=== PATIENT | female | born 1955 | race Caucasian/White ===

== ENCOUNTER 2017-03-30 08:16 | Outpatient (CLI) | payer OTHER ==
[2017-03-30 10:20] LABS: Mean Platelet Volume 7.6 fL (7.4-10.4); Red Blood Cell (RBC) Count 4.17 mill/uL (4.20-5.40); White Blood Cell (WBC) Count 7.4 thou/uL (4.8-10.8)
[2017-03-30 10:38] LABS: Anion Gap 14 mmol/L (10-20); BUN (Urea Nitrogen) 23 mg/dL (9.8-20.1); Calc. Creatinine Clearance 0 mL/min (70-130); Calcium 9.1 mg/dL (7.8-10.44); Carbon Dioxide 25 mmol/L (23-31); Chloride 106 mmol/L (98-107); Estimated GFR-MDRD 75
--- NOTE | 2017-03-31 16:04 | EKG ---
Test Reason : PREOP Blood Pressure : / mmHG Vent. Rate : 052 BPM Atrial Rate : 052 BPM P-R Int : 164 ms QRS Dur : 092 ms QT Int : 454 ms P-R-T Axes : 079 061 069 degrees QTc Int : 422 ms Sinus bradycardia with Premature atrial complexes Minimal voltage criteria for LVH, may be normal variant Borderline ECG When compared with ECG of 03-DEC-2015 23:34, (Unconfirmed) Premature ventricular complexes are no longer Present Premature atrial complexes are now Present Confirmed by DR. Anthony RAMIREZ ([id number]) on 03/31/2017 4:04:19 PM Referred By: INDRA Confirmed By:DR. Anthony RAMIREZ
== END 2017-03-30 08:17 | disposition home or self-care (01) ==
LOC: LABBT 08:16
PROVIDERS: ATTEND Orthopaedic Surgery
DX: Z01.818 Encounter for other preprocedural examination (principal); M65.331 Trigger finger, right middle finger
CPT/HCPCS: 80048; 85027; 93005; 93010

== ENCOUNTER 2017-05-11 13:17 | Outpatient (CLI) | payer OTHER ==
--- NOTE | 2017-05-11 15:00 | MRI ---
MRI OF THE LUMBAR SPINE WITHOUT CONTRAST: COMPARISON: None. HISTORY: Low back pain with right-sided radiculopathy for 3 years. TECHNIQUE: Multiplanar, multisequence MR images were obtained of the lumbar spine without contrast. FINDINGS: Disk desiccation of L4-5 and L5-S1 intervertebral disks is seen. The conus medullaris terminates nor alicia at L1. There are foci of high T2 signal in the bilateral kidneys which represents cysts. The other prevertebral and paraspinal soft tissues are unremarkable. The vertebral bodies demonstrate no rmal height and alignment without fracture or subluxation. T12-L1: Unremarkable. L1-2: Unremarkable. L2-3: Unremarkable. L3-4: No significant bulge or protrusion. Mild bilateral posterior facet arthrosis. Mild central c anal stenosis. No neural foraminal stenosis. L4-5: A small disk-osteophyte complex is seen. Mild bilateral posterior facet arthrosis. Moderate central canal stenosis. Moderate bilateral neural foraminal stenosis. L5-S1: A small disk-osteophyte complex is associated with a superimposed right paracentral protrusio n. Mild bilateral posterior facet arthrosis. Mild central canal stenosis. Mild bilateral neural fo raminal stenosis. IMPRESSION: Degenerative changes of the lumbar spine as above. POS: [facility]
== END 2017-05-11 13:18 | disposition home or self-care (01) ==
LOC: MRI 13:17
PROVIDERS: ATTEND Surgery
DX: M54.5 Low back pain (principal); M47.816 Spondylosis without myelopathy or radiculopathy, lumbar region
CPT/HCPCS: 72148

== ENCOUNTER 2017-08-29 13:06 | Outpatient (CLI) | payer OTHER | END 2017-08-29 13:07 | disposition home or self-care (01) | LOC: BICULT 13:06 | PROVIDERS: ATTEND Urology | DX: N20.0 Calculus of kidney (principal); N28.1 Cyst of kidney, acquired | CPT/HCPCS: 74018; 76770 ==

== ENCOUNTER 2017-11-22 09:12 | Outpatient (CLI) | payer OTHER | END 2017-11-22 09:13 | disposition home or self-care (01) | LOC: BICMAMMO 09:12 | PROVIDERS: ATTEND Family Medicine | DX: Z12.31 Encounter for screening mammogram for malignant neoplasm of breast (principal); Z80.3 Family history of malignant neoplasm of breast | CPT/HCPCS: 77063; 77067 ==

== ENCOUNTER 2018-02-05 08:50 | Outpatient (CLI) | payer OTHER ==
[2018-02-05 10:28] LABS: Hemoglobin 12.9 g/dL (12.0-16.0); Mean Corpuscular HGB CONC 32.1 g/dL (32.0-36.0); Mean Corpuscular Hemoglobin 30.1 pg (27.0-31.0); Mean Corpuscular Volume 93.6 fL (78.0-98.0); Mean Platelet Volume 7.4 fL (7.4-10.4); Platelet Count 364 thou/uL (130-400); White Blood Cell (WBC) Count 6.5 thou/uL (4.8-10.8)
[2018-02-05 10:49] LABS: INR-International Normal Ratio 0.9; PTT 30.8 SEC (22.9-36.1)
[2018-02-05 10:52] LABS: Anion Gap 11 mmol/L (10-20); BUN (Urea Nitrogen) 21 mg/dL (9.8-20.1); Calc. Creatinine Clearance 0 mL/min (70-130); Calcium 9.4 mg/dL (7.8-10.44); Carbon Dioxide 26 mmol/L (23-31); Chloride 107 mmol/L (98-107); Estimated GFR-MDRD 80; Glucose 92 mg/dL (80-115); Potassium 3.8 mmol/L (3.5-5.1); Sodium 140 mmol/L (136-145)
--- NOTE | 2018-02-06 17:42 | EKG ---
Test Reason : Blood Pressure : / mmHG Vent. Rate : 045 BPM Atrial Rate : 045 BPM P-R Int : 170 ms QRS Dur : 090 ms QT Int : 474 ms P-R-T Axes : 079 065 066 degrees QTc Int : 410 ms Marked sinus bradycardia Possible Left atrial enlargement Left ventricular hypertrophy Abnormal ECG When compared with ECG of 30-MAR-2017 08:46, Premature atrial complexes are no longer Present Confirmed by DR. Anthony RAMIREZ ([id number]) on 02/06/2018 5:41:46 PM Referred By: RIZWAN Confirmed By:DR. Anthony RAMIREZ
== END 2018-02-05 08:51 | disposition home or self-care (01) ==
LOC: LABBT 08:50
PROVIDERS: ATTEND Surgery
DX: Z01.818 Encounter for other preprocedural examination (principal); M48.02 Spinal stenosis, cervical region; M54.12 Radiculopathy, cervical region
CPT/HCPCS: 80048; 85027; 85610; 85730; 93005; 93010

== ENCOUNTER 2018-02-15 05:59 | Day surgery (SDC) | payer OTHER ==
[2018-02-05 09:18] VITALS: BMI 21.9
[2018-02-15] MEDS ORDERED: CEFAZOLIN/Water 2 GM/20 ML SYRINGE ONE (06:23)
[2018-02-15] MEDS ORDERED: Sodium Chloride 0.9% 10 ML ONE (06:26)
[2018-02-15] MEDS ORDERED: Thrombin 5000 UNITS/5 ML VIAL ONE (06:26)
[2018-02-15] MEDS ORDERED: Midazolam HCl 2 mg/2 ml Vial ONE (07:05)
[2018-02-15] MEDS ORDERED: Fentanyl 100 MCG/2 ML VIAL ONE ×5 (07:06→10:34)
[2018-02-15] MEDS ORDERED: Acetaminophen 325 MG TAB PO PRN (09:35)
[2018-02-15] MEDS ORDERED: Bisacodyl 10 MG SUPP PR PRN (09:35)
[2018-02-15] MEDS ORDERED: Mag-Al 1200 mg/1200 mg/30 ML UDCUP PO PRN (09:35)
[2018-02-15] MEDS ORDERED: Milk Of Magnesia 30 ML UDCUP PO PRN (09:35)
[2018-02-15] MEDS ORDERED: Promethazine HCl 25 MG/ML VIAL IM PRN ×2 (09:35→09:43)
[2018-02-15] MEDS ORDERED: Acetaminophen/Codeine 30-300mg Tablet PO PRN (09:35)
[2018-02-15] MEDS ORDERED: Fleet Enema 133 ML BOT PR PRN (09:35)
[2018-02-15] MEDS ORDERED: Meperidine HCl/PF 25 MG/ML VIAL SLOW IVP PRN (09:43)
[2018-02-15] MEDS ORDERED: HYDROmorphone 2 MG/ML VIAL SLOW IVP PRN (09:43)
[2018-02-15] MEDS ORDERED: Ondansetron HCl/PF 4 MG/2 ML Vial IVP PRN (09:43)
[2018-02-15] MEDS ORDERED: Promethazine HCl 25 MG/ML VIAL SLOW IVP PRN (09:43)
[2018-02-15] MEDS ORDERED: Glycopyrrolate 0.2 MG/ML 5 ML SYRINGE ONE (10:36)
[2018-02-15] MEDS ORDERED: Ondansetron HCl/PF 4 MG/2 ML Vial ONE (10:36)
[2018-02-15] MEDS ORDERED: Metoclopramide HCl 10 MG/2 ML VIAL ONE (10:36)
[2018-02-15] MEDS ORDERED: Lidocaine 1% PF 5 ML VIAL ONE (10:36)
[2018-02-15] MEDS ORDERED: Dexamethasone 20 MG/5 ML VIAL ONE (10:36)
[2018-02-15] MEDS ORDERED: PROPOFOL 200 MG/20 ML VIAL ONE (10:36)
--- NOTE | 2018-02-15 10:45 | OP ---
DATE OF PROCEDURE: 02/15/2018 OR: OR #11. WOUND TYPE: Type 1 wound. SURGEON: James Maldonado M.D. MANAGER MALL: Rosendo Lu PA-C. PREPROCEDURE DIAGNOSES: C5-C6 stenosis with radiculopathy. POST-PROCEDURE DIAGNOSES: C5-C6 stenosis with radiculopathy. PROCEDURE: 1. Anterior C5-C6 diskectomy for decompression of spinal cord nerve roots. 2. Preparation of endplates with placement of interbody spacer packed with local bone autograft obta ined from same incision, allograft, C5-C6 for arthrodesis. 3. Anterior cervical plate and screw fixation, C5-C6. 4. Use of operative microscope for microdissection. PROCEDURE: After informed consent was obtained, the patient, the patient brought to OR 11. Proper p atient pause and identification was carried out. She was placed under excellent endotracheal anesthe gagan and positioned supine on the OR table. All appropriate points were padded. A small right anteri or oblique dai was drawn out. This region was sterilely cleansed, prepared, and draped. Proper pat ient pause and identification was carried out. The wound was then opened with a combination of sharp , monopolar and blunt dissection proceeded lateral to the esophagus and trachea and medial to the rig ht carotid sheath. We identified the prevertebral layer of deep cervical fascia. Localization film confirmed our area of interest. We then performed distraction at C5-C6 and diskectomy was performed with use of microscope for microdissection, resulting in decompression of neural elements. We then p repared the endplates and an interbody spacer packed with graft was placed for arthrodesis and the mi croscope removed. Anterior cervical plate and screw fixation occurred at C5-C6. Copious irrigation occurred throughout as did maximizing hemostasis. The wound was then closed in anatomic layers over a drain. The patient then emerged from anesthesia.
[2018-02-15] MEDS: HYDROcodone/Acetaminophen 7.5/325 mg Tablet PO PRN ×2 (12:36→19:52)
[2018-02-15] MEDS: Sodium Chloride 0.9% 1,000 ML IV SCH (13:29)
[2018-02-15] MEDS: tiZANidine HCl 4 MG TAB PO PRN ×2 (13:43→19:06)
[2018-02-15] MEDS: CEFAZOLIN/Water 2 GM/20 ML SYRINGE SLOW IVP SCH ×2 (17:25→22:44)
[2018-02-15] MEDS: Docusate 100 MG CAP PO SCH (20:02)
[2018-02-15] MEDS: traMADol HCl 50 MG TAB PO PRN (22:43)
[2018-02-16] MEDS: HYDROcodone/Acetaminophen 7.5/325 mg Tablet PO PRN ×3 (00:25→11:00)
[2018-02-16] MEDS: tiZANidine HCl 4 MG TAB PO PRN ×2 (01:01→08:24)
[2018-02-16] MEDS: Sodium Chloride 0.9% 1,000 ML IV SCH (01:03)
[2018-02-16] MEDS: Meperidine HCl/PF 25 MG/ML VIAL SLOW IVP PRN ×2 (02:38→06:44)
[2018-02-16] MEDS: CEFAZOLIN/Water 2 GM/20 ML SYRINGE SLOW IVP SCH (06:47)
[2018-02-16 07:56] VITALS: BP 147/70; TEMP 97.4
[2018-02-16] MEDS: traMADol HCl 50 MG TAB PO PRN (08:24)
[2018-02-16] MEDS: Docusate 100 MG CAP PO SCH (08:24)
[2018-02-16] MEDS ORDERED: Multivit, Therapeutic 1 TAB PO SCH (09:00)
--- NOTE | 2018-02-16 09:53 | PRG ---
DATE OF SERVICE: 02/16/2018 SUBJECTIVE: Ms. Perez is doing well postoperative day 1 from C5-C6 ACDF. She has had bifrontal he adache. I should note, there was no evidence of CSF leak intraoperatively. I suspect this is medica tion related. She has also had as expected neck pain, but her upper extremities have improved in reg ena to her radiculopathy. Her drain output has been minimal. She is doing well neurologically. We went over both intra and postoperative issues and she will be dismissed and we will remove the drain.
== END 2018-02-16 11:05 | disposition home or self-care (01) ==
LOC: SDC 05:59 → SURG A 12:01 → SDC 02-16 11:05
PROVIDERS: ATTEND Surgery
PROC: 0RG10A0 Fusion of Cervical Vertebral Joint with Interbody Fusion Device, Anterior Approach, Anterior Column, Open Approach (ICD-10-PCS; principal; 2018-02-15)
PROC: 0RT30ZZ Resection of Cervical Vertebral Disc, Open Approach (ICD-10-PCS; principal; 2018-02-15)
DX: M48.02 Spinal stenosis, cervical region (principal); M54.12 Radiculopathy, cervical region; F17.210 Nicotine dependence, cigarettes, uncomplicated; Z79.82 Long term (current) use of aspirin; Z79.899 Other long term (current) drug therapy; Z88.5 Allergy status to narcotic agent
CPT/HCPCS: 76001; 96372; 96374; 96375; 96376; A4216; C1713; C1776; J0131; J2175; J2250; J2550; J3010; J3490

== ENCOUNTER 2018-04-11 09:04 | Outpatient (CLI) | payer OTHER ==
--- NOTE | 2018-04-11 10:19 | RAD ---
THREE VIEWS OF THE CERVICAL SPINE: DATE: 04/11/2018. COMPARISON: 02/13/2017. HISTORY: Evaluate cervical spine following surgery, pain. FINDINGS: Anterior diskectomy and fusion hardware is now present at C5-6. No significant anterolisthesis or re trolisthesis is noted. There is mild anterior wedging and superior end plate irregularity at C7 suggesting remote fracture, stable when compared to the 2017 examination. No prevertebral soft tissue swelling. No evidence for hardware failure. Open mouth odontoid view de monstrates a normal-appearing C1-2 articulation. IMPRESSION: Postoperative changes within the cervical spine as detailed above. POS: [facility]
== END 2018-04-11 09:05 | disposition home or self-care (01) ==
LOC: TBSIIMAG 09:04
PROVIDERS: ATTEND Surgery
DX: M54.12 Radiculopathy, cervical region (principal); M48.02 Spinal stenosis, cervical region; M54.2 Cervicalgia; Z98.890 Other specified postprocedural states
CPT/HCPCS: 72040

== ENCOUNTER 2018-05-18 07:45 | Outpatient (CLI) | payer OTHER ==
--- NOTE | 2018-05-18 09:16 | RAD ---
RADIOGRAPH LUMBAR SPINE 4 VIEWS: 05/18/2018 HISTORY: A 63-year-old female with M54.5, chronic low back pain. COMPARISON: No prior plain radiograph of the lumbar spine. TECHNIQUE: All upright views. AP view. Three lateral views, in flexion, extension, and neutral. FINDINGS: There is a transitional level at the thoracolumbar junction. For the purposes of this report, the ve rtebra with a unilateral left small accessory rib will be designated as L1 rather than T12. Followin g this, the lowest lumbar vertebra will be designated as L5. There is no scoliosis. Vertebral body heights are maintained. Mild degenerative retrolisthesis of L 4 on L5, and also of L5 on S1. Mild to moderate disk space narrowing at L4-L5. Moderate to severe d isk space narrowing at L5-S1. Small endplate marginal osteophytes. Degenerative facet changes at L5 -S1, right greater than left. No instability is demonstrated between flexion and extension. IMPRESSION: 1. Lumbar spondylosis, consisting of facet osteoarthrosis at L5-S1, and degenerative disk changes at L5-S1 and at L4-L5. 2. The other levels appear relatively normal. 3. No instability. 4. Transitional level at the thoracolumbar junction. SAMMIE [] POS: [facility]
--- NOTE | 2018-05-18 09:40 | MRI ---
MRI LUMBAR SPINE WITHOUT CONTRAST: HISTORY: M54.5, low back pain. COMPARISON: MRI from 2017. FINDINGS: The aortic size is nonaneurysmal. There are multiple T2 hyperintense foci of both kidneys, similar. No hydronephrosis. No retroperitoneal adenopathy. No marrow infiltrative process. No acute fracture or malalignment. Modic type I endplate changes of L5-S1. The conus medullaris terminates near the inferior endplate of L1. Levels are as follows: L1-L2: There is a low grade right lateral recess in the subforaminal zone. Posterior disk osteophyt e complex. Mild right-sided neural foraminal narrowing. No significant left-sided neural foraminal narrowing. Spinal canal is not narrowed. L2-L3: Low-grade bilateral subforaminal posterior disk osteophyte complexes. Mild bilateral neural foraminal narrowing. No significant spinal canal narrowing. L3-L4: Mild disk desiccation. Mild facet arthropathy. Low-grade bilateral subforaminal posterior d isk osteophyte complexes. Mild bilateral neural foraminal narrowing. L4-L5: There is a broad-based posterior disk osteophyte complex. Moderate bilateral neural foramina l narrowing. Moderate facet arthropathy. Mild ligamentum flavum hypertrophy. The spinal canal jane ures 6 mm. L5-S1: There is a central, right paracentral, and subforaminal posterior disk osteophyte complex cau sing moderate right-sided neural foraminal narrowing. Moderate facet arthropathy. Mild left-sided n eural foraminal narrowing. IMPRESSION: Multilevel mild to moderate spondylosis, similar to 2017 examination. No new acute abnormality. POS: [facility]
== END 2018-05-18 07:46 | disposition home or self-care (01) ==
LOC: TBSIIMAG 07:45
PROVIDERS: ATTEND Surgery
DX: M54.5 Low back pain (principal); M51.36 Other intervertebral disc degeneration, lumbar region; M51.37 Other intervertebral disc degeneration, lumbosacral region; M47.816 Spondylosis without myelopathy or radiculopathy, lumbar region
CPT/HCPCS: 72110; 72148

== ENCOUNTER 2018-09-12 19:37 | Emergency (ER) | payer OTHER ==
[2018-09-12] MEDS ORDERED: Metoclopramide HCl 10 MG/2 ML VIAL ONE (19:59)
[2018-09-12 20:04] LABS: #Lymphocytes 1.6 thou/uL (1.20-3.40); #Monocytes 0.5 thou/uL (0.11-0.59); #Neutrophils 4.7 thou/uL (1.40-6.50); %Basophils 0.6 % (0.0-1.0); %Eosinophils 0.5 % (0.0-10.0); %Monocytes 6.9 % (0.0-10.0); Hemoglobin 14.9 g/dL (12.0-16.0); Mean Corpuscular HGB CONC 32.3 g/dL (32.0-36.0); Mean Corpuscular Hemoglobin 29.2 pg (27.0-31.0); Mean Corpuscular Volume 90.3 fL (78.0-98.0); Mean Platelet Volume 8.4 fL (7.4-10.4); Platelet Count 311 thou/uL (130-400); RBC Distribution Width 12.5 % (11.5-14.5); White Blood Cell (WBC) Count 6.8 thou/uL (4.8-10.8)
[2018-09-12] MEDS ORDERED: Lorazepam 2 MG/ML VIAL ONE (20:09)
[2018-09-12] MEDS ORDERED: Promethazine HCl 25 MG/ML VIAL ONE (20:10)
[2018-09-12] MEDS ORDERED: Fentanyl 100 MCG/2 ML VIAL ONE (20:23)
[2018-09-12 20:32] LABS: ALT (SGPT) 17 U/L (8-55); AST (SGOT) 30 U/L (5-34); Albumin 4.5 g/dL (3.4-4.8); Alkaline Phosphatase 107 U/L (40-150); Anion Gap 23 mmol/L (10-20); BUN (Urea Nitrogen) 38 mg/dL (9.8-20.1); Bilirubin, Total 0.3 mg/dL (0.2-1.2); CK (CPK) 65 U/L (29-168); Calc. Creatinine Clearance 0 mL/min (70-130); Calcium 9.8 mg/dL (7.8-10.44); Carbon Dioxide 16 mmol/L (23-31); Chloride 102 mmol/L (98-107); Estimated GFR-MDRD 45; Globulin 3.5 g/dL (2.4-3.5); Glucose 126 mg/dL (80-115); Lipase 12 U/L (8-78); Potassium 4.1 mmol/L (3.5-5.1); Sodium 137 mmol/L (136-145)
--- NOTE | 2018-09-12 21:00 | CT ---
EXAM: Brain CT scan Without contrast: HISTORY: Headache COMPARISON: None FINDINGS: Atrophy and chronic white matter ischemic change. No focal mass or midline shift. No intra or extra-axial hemorrhage. IMPRESSION: No mass or bleed or other significant acute intracranial process. 1
== END 2018-09-12 22:01 | disposition home or self-care (01) ==
LOC: ERS 19:37
DX: E86.0 Dehydration (principal); G43.909 Migraine, unspecified, not intractable, without status migrainosus; R11.2 Nausea with vomiting, unspecified; R19.7 Diarrhea, unspecified; Z79.899 Other long term (current) drug therapy
CPT/HCPCS: 70450; 80053; 82550; 83690; 85025; 93005; 96365; 96375; J2060; J2550; J2765; J3010

== ENCOUNTER 2018-12-21 12:21 | Inpatient (IN) | payer OTHER ==
[2018-12-21] MEDS ORDERED: Metoclopramide HCl 10 MG/2 ML VIAL ONE (12:51)
[2018-12-21] MEDS ORDERED: Pantoprazole 40 MG VIAL ONE (12:52)
[2018-12-21 13:13] LABS: Mean Corpuscular HGB CONC 33.1 g/dL (32.0-36.0); Mean Corpuscular Hemoglobin 29.8 pg (27.0-31.0); Mean Corpuscular Volume 89.9 fL (78.0-98.0); Mean Platelet Volume 8.1 fL (7.4-10.4); Platelet Count 369 thou/uL (130-400); Red Blood Cell (RBC) Count 5.39 mill/uL (4.20-5.40); White Blood Cell (WBC) Count 23.6 thou/uL (4.8-10.8)
[2018-12-21 13:30] LABS: Band 12 % (5-11); Lymphocytes 6 % (21-51); MDiff Complete? YES; Monocytes 4 % (0-10); Neutrophil 78 % (42-75); Platelet Morphology Comment Appears Adequate; RBC Morphology Normal
[2018-12-21 13:38] LABS: ALT (SGPT) 78 U/L (8-55); AST (SGOT) 93 U/L (5-34); Albumin 4.7 g/dL (3.4-4.8); Alkaline Phosphatase 190 U/L (40-150); Anion Gap 24 mmol/L (10-20); BUN (Urea Nitrogen) 40 mg/dL (9.8-20.1); Bilirubin, Total 1.3 mg/dL (0.2-1.2); Calc. Creatinine Clearance 0 mL/min (70-130); Calcium 10.6 mg/dL (7.8-10.44); Carbon Dioxide 16 mmol/L (23-31); Chloride 97 mmol/L (98-107); Estimated GFR-MDRD 23; Globulin 3.9 g/dL (2.4-3.5); Glucose 231 mg/dL (80-115); Lipase 9 U/L (8-78); Potassium 3.8 mmol/L (3.5-5.1); Protein, Total 8.6 g/dL (6.0-8.3); Sodium 133 mmol/L (136-145)
--- NOTE | 2018-12-21 15:23 | CT ---
CT ABDOMEN AND PELVIS WITHOUT IV CONTRAST: Date: 12/21/18 INDICATION: Abdominal pain. Constipation. Now with vomiting and diarrhea since last night. Comparison made to CT abdomen and pelvis dated 01/22/17. FINDINGS: Lung bases are clear. Liver, spleen, and pancreas are unremarkable. Hepatic hemangiomas have been previously described on c ontrast enhanced CT scan. These are not well seen on this unenhanced study. Post cholecystectomy [facility]. Bilateral renal cystic lesions appear stable. There are bilateral renal calcifications which were pre sent previously. Calcifications in the lower pole of the right kidney and there are numerous calcific ations throughout the upper collecting structures of the left kidney. These appear stable. There is n o ureteral calculus or obstruction. No hydronephrosis. Urinary bladder contracted. Small bowel loops show mild distention. The colon is abnormal. Large amount of stool is seen throughout the colon. There is mural thickening of the transverse colon and left colon with surrounding inflammatory change. There is scattered diver ticula. There is free fluid surrounding the sigmoid colon and the pelvis. There is luminal narrowing at the rectosigmoid junction of uncertain significance. This should be ass essed with endoscopy to rule out a mucosal lesion. IMPRESSION: Large amount of stool in the colon with mural thickening and inflammatory changes surrounding the tra nsverse and left colon. Free fluid surrounds the sigmoid colon and the pelvis. Luminal narrowing at t he rectosigmoid junction of uncertain significance. The findings indicate diffuse colitis. Recommend GI consultation. POS: [facility]
[2018-12-21] MEDS ORDERED: MEROPENEM 1 GM/50 ML 1 GM in Premix Bag 1 BAG IVPB SCH (16:00)
[2018-12-21] MEDS ORDERED: Promethazine HCl 25 MG/ML VIAL ONE (16:54)
[2018-12-21] MEDS ORDERED: Acetaminophen 650 MG Suppository PR PRN (19:15)
[2018-12-21] MEDS ORDERED: Ondansetron ODT 4 MG TAB PO PRN (19:15)
[2018-12-21] MEDS ORDERED: Ondansetron PF 4 MG/2 ML Vial IVP PRN (19:15)
[2018-12-21] MEDS ORDERED: Sodium Chloride 0.9% 1,000 ML IV SCH ×2 (19:15→22:51)
[2018-12-21] MEDS ORDERED: Acetaminophen 325 MG TAB PO PRN (19:15)
[2018-12-21 19:54] VITALS: BMI 21.9
[2018-12-21 20:59] LABS: Lactic Acid 3.5 mmol/L (0.5-2.2)
[2018-12-21 21:03] LABS: Bilirubin, Direct 0.4 mg/dL (0.1-0.3); Magnesium 2.3 mg/dL (1.6-2.6)
[2018-12-21] MEDS: Famotidine/PF 20 mg/2ml Vial SLOW IVP SCH (21:11)
[2018-12-21] MEDS: Meropenem 500 MG in Sodium Chloride 0.9% 100 ML IVPB SCH (21:11)
[2018-12-21] MEDS: traMADol HCl 50 MG TAB PO PRN (21:25)
[2018-12-21 21:50] LABS: Acetaminophen Less than 6.0 mcg/mL (10.0-30.0); Alcohol Less than 10 mg/dL (Less than 10); Salicylate Less than 8.0 mg/dL (15.0-30.0)
[2018-12-21] MEDS ORDERED: Meropenem 1 GM in Sodium Chloride 0.9% 100 ML IVPB SCH (22:00)
--- NOTE | 2018-12-21 23:47 | ULT ---
Sonogram abdomen complete HISTORY: Abdominal pain. Abnormal liver function tests. FINDINGS: Gallbladder is surgically absent. Common duct is upper limits of normal at 1.0 cm where the re is mild fusiform dilatation. The liver contains 3 hemangiomas that have been detailed on prior CT exams. Small cyst of the left kidney. Tiny cyst at the posterior cortex of the right kidney. Tiny shadowing stone the inferior pole of the right kidney. Spleen and visualized portions of the abdominal aorta, IVC, and pancreas have a normal appearance. IMPRESSION: Status post cholecystectomy. No evidence of biliary obstruction. Nonobstructing right renal calculus. Bilateral renal cysts.
[2018-12-22 00:04] LABS: Amphetamine Not Detected (NotDetected); Barbiturates Screen Not Detected (NotDetected); Benzodiazepine Screen Not Detected (NotDetected); Cocaine Metabolite Screen Not Detected (NotDetected); Medtox Control Line Valid? VALID (VALID); Medtox Reader # READER 4; Methadone Not Detected (NotDetected); Methamphetamine Not Detected (NotDetected); Opiate Screen Not Detected (NotDetected); Oxycodone Screen Not Detected (NotDetected); Phencyclidine (PCP) Not Detected (NotDetected); THC/Cannabinoid Screen Detected (NotDetected); Tricyclic Screen Not Detected (NotDetected)
[2018-12-22 00:47] LABS: Anion Gap 16 mmol/L (10-20); BUN (Urea Nitrogen) 43 mg/dL (9.8-20.1); Calc. Creatinine Clearance 46 mL/min (70-130); Calcium 8.8 mg/dL (7.8-10.44); Carbon Dioxide 16 mmol/L (23-31); Chloride 106 mmol/L (98-107); Estimated GFR-MDRD 43; Glucose 148 mg/dL (80-115); Potassium 3.2 mmol/L (3.5-5.1); Sodium 135 mmol/L (136-145)
[2018-12-22] MEDS: 1/2 NS w/KCL 20 mEq 1,000 ML IV SCH ×3 (03:54→20:58)
[2018-12-22] MEDS: Meropenem 500 MG in Sodium Chloride 0.9% 100 ML IVPB SCH (05:40)
[2018-12-22 07:01] LABS: Anion Gap 14 mmol/L (10-20); BUN (Urea Nitrogen) 45 mg/dL (9.8-20.1); Calc. Creatinine Clearance 52 mL/min (70-130); Calcium 8.8 mg/dL (7.8-10.44); Carbon Dioxide 20 mmol/L (23-31); Chloride 104 mmol/L (98-107); Estimated GFR-MDRD 50; Glucose 116 mg/dL (80-115); Magnesium 1.9 mg/dL (1.6-2.6); Potassium 3.6 mmol/L (3.5-5.1); Sodium 134 mmol/L (136-145)
[2018-12-22 07:39] LABS: Hemoglobin 12.8 g/dL (12.0-16.0); Mean Corpuscular HGB CONC 33.3 g/dL (32.0-36.0); Mean Corpuscular Hemoglobin 29.8 pg (27.0-31.0); Mean Corpuscular Volume 89.5 fL (78.0-98.0); Mean Platelet Volume 8.6 fL (7.4-10.4); Platelet Count 277 thou/uL (130-400); RBC Distribution Width 12.8 % (11.5-14.5); White Blood Cell (WBC) Count 18.8 thou/uL (4.8-10.8)
[2018-12-22 07:42] LABS: Band 3 % (5-11); Lymphocytes 4 % (21-51); MDiff Complete? YES; Monocytes 8 % (0-10); Neutrophil 82 % (42-75); Platelet Morphology Comment Appears Adequate; Reactive Lymphocytes 3 % (0-10)
--- NOTE | 2018-12-22 13:45 | PDOC.HOSPP ---
- Subjective Subjective: Pt seen for followup re: clostridium difficile colitis. c/o abdo cramps, diarrhea. - Objective Vital Signs & Weight: Vital Signs (12 hours) Temp Pulse Resp BP Pulse Ox 12/22/18 11:46 98.4 F 72 16 177/94 H 97 12/22/18 08:00 96 12/22/18 07:56 98.5 F 69 18 181/84 H 96 12/22/18 05:43 98 F 78 18 149/83 H 96 Weight Weight 140 lb Result Diagrams: 12/22/18 05:40 12/22/18 05:40 Additional Labs: MARs and labs reviewed by me ROS - Review of Systems All systems: All other ROS were reviewed and found negative. Cardiovascular: denies: chest pain, palpitations, orthopnea, paroxysmal noc. dyspnea, edema, light headedness Gastrointestinal: reports: abdominal pain, diarrhea. denies: nausea, vomitting , constipation, melena, hematochezia - Medication Medications: Active Medications Generic Name Dose Route Start Last Admin Trade Name Freq PRN Reason Stop Dose Admin Famotidine 20 mg 12/21/18 21:00 12/21/18 21:11 Pepcid SLOW IVP 20 mg QPM MAY Administration Potassium Chloride/Sodium Chloride 1,000 mls @ 75 mls/hr 12/22/18 03:00 12/22 03:54 1/2 Ns W/Kcl 20 Meq IV 1,000 mls .[id number] MAY Administration Tramadol HCl 50 mg 12/21/18 21:13 12/21/18 21:25 Ultram PO 50 mg Q8H PRN Administration Moderate Pain (4-6) - Exam NAD ENT: normocephalic atraumatic Neck: supple Heart: RRR Respiratory: CTAB Gastrointestinal: soft, non-tender, normal bowel sounds Psychiatric: normal affect Hosp A/P (1) Clostridium difficile colitis Code(s): A04.72 - ENTEROCOLITIS D/T CLOSTRIDIUM DIFFICILE, NOT SPCF RECUR Status: Acute (2) Elevated blood pressure reading Code(s): R03.0 - ELEVATED BLOOD-PRESSURE READING, W/O DIAGNOSIS OF HTN Status : Acute (3) Abnormal LFTs Code(s): R94.5 - ABNORMAL RESULTS OF LIVER FUNCTION STUDIES Status: Acute (4) Hyponatremia Code(s): E87.1 - HYPO-OSMOLALITY AND HYPONATREMIA Status: Acute (5) TEN (acute kidney injury) Code(s): N17.9 - ACUTE KIDNEY FAILURE, UNSPECIFIED Status: Resolved - Plan continue antibiotics, out of bed/ambulate, DVT proph w/SCDs continue metronidazole and enteral vancomycin. Add PRN IV hydralazine for elevated blood pressure. Recheck LFTs Mild hyponatremia, likely asymptomatic.
[2018-12-22] MEDS: traMADol HCl 50 MG TAB PO PRN (14:35)
[2018-12-22] MEDS: metroNIDAZOLE 500 MG in Premix Bag 1 BAG IVPB SCH ×2 (14:39→20:57)
[2018-12-22] MEDS: Vancomycin HCl 25 MG/ML Oral PO SCH (18:47)
--- NOTE | 2018-12-22 19:07 | CON ---
DATE OF CONSULTATION: REASON FOR CONSULTATION: "Diverticulitis." HISTORY OF PRESENT ILLNESS: Ms. Perez is a 63-year-old female, known to me from prior evaluations for nausea, vomiting, chronic constipation related to her narcotic pain medicines, who had normal upper and lower endoscopies 5 years ago, except for some diverticular disease. She came into the emergency room with complaints of abdominal pain, diarrhea, and vomiting for several days duration. She reports that about 2 weeks ago, she was in the hospital in [facility] in [place], [place] and was told that she may have diverticulitis, was given one dose of antibiotics in the emergency room and then sent home with no antibiotics, told to follow up with regular physician. She was here with nausea, vomiting. She states that happens periodically and she relates that to her pain medicines. However, her diarrhea became much worse in the past 3 to 4 days. At first, she thought she could not have a bowel movement, then took laxatives and was having bowel movements where everything just would come out every 10 to 15 minutes. She was having vomiting as well. She denies any fever. Her pain however in left lower quadrant was quite severe. In the emergency room, she had a CAT scan of the abdomen and pelvis, showed a large amount of stool in the colon, mural thickening, inflammatory changes around the transverse and left colon, free fluid in the sigmoid colon and pelvis, some luminal narrowing at the rectosigmoid junction. Stool last night came back positive for C difficile toxin and antigen. She denies any recent antibiotics other than the treatment in the emergency room in [place] a few weeks ago. She has had no other new changes in medications. Presently, she feels a little bit better. PAST MEDICAL HISTORY: Chronic pain syndrome, for which she takes multiple pain medications. She has skin cancers in the past. She had EGD and colonoscopy 5 years ago as noted above. PAST SURGICAL HISTORY: Includes right knee, cholecystectomy, and neck surgeries in the past. MEDICATIONS: Home medications; 1. Protonix. 2. Naprosyn. 3. [place]. 4. Tramadol. 5. Omeprazole. 6. Nat. 7. Excedrin. Present medications here; 1. Tylenol. 2. Pepcid. 3. . 4. She was on meropenem, which was stopped and placed on metronidazole IV and oral vancomycin when her C diff came back. 5. She is on half-normal saline at 75 an hour. 6. P.r.n. Zofran. 7. P.o. vancomycin 250 q.i.d. ALLERGIES: MORPHINE. SOCIAL HISTORY: She does not drink, smoke, or use drugs. REVIEW OF SYSTEMS: Negative for rashes, myalgias, or arthralgias. Negative for fever or chills, dysuria, frequency, or urgency. Negative for recent antibiotics. PHYSICAL EXAMINATION: VITAL SIGNS: Temperature is 98.4, she has been afebrile since admission. Pulse 72, blood pressure 137/94. GENERAL: She is resting in bed, she is sitting up. She is in no distress. HEENT: Oropharynx is slightly dry. NECK: Supple. No adenopathy. LUNGS: Clear. HEART: Regular without clicks or murmurs. ABDOMEN: Soft. There are decreased bowel sounds. There is tenderness in left lower quadrant. There is no rebound. There is no guarding. IMAGING STUDIES: CAT scan films were reviewed, I agree with report as per that notated in the chart. LABORATORY DATA: White blood cell count 23,000 last night, 18,000 tonight. Platelets 277, 80% segs, 12% bands hemoglobin came down from 16 to 12 with hydration. BUN and creatinine are 45 and 1.10. On the 26th at 1300 hours, they were 40 and 2.17. Sodium 134, potassium 3.6. ASSESSMENT: Severe Clostridium difficile colitis with leukocytosis and inflammatory changes with pericolonic fluid on the CAT scan. RECOMMENDATIONS: IV Flagyl, p.o. vancomycin, saccharomyces boulardii, IV fluids. Liquid diet, advance as tolerated. Job ID: [id number]
[2018-12-22] MEDS: Famotidine/PF 20 mg/2ml Vial SLOW IVP SCH (20:58)
[2018-12-23] MEDS: metroNIDAZOLE 500 MG in Premix Bag 1 BAG IVPB SCH ×3 (04:59→21:03)
[2018-12-23] MEDS: Vancomycin HCl 25 MG/ML Oral PO SCH ×5 (05:00→23:28)
[2018-12-23] MEDS: traMADol HCl 50 MG TAB PO PRN ×2 (05:01→13:44)
[2018-12-23] MEDS: Saccharomyces boulardii 250 MG CAP PO SCH (08:08)
[2018-12-23 08:36] LABS: #Eosinphils 0.1 thou/uL (0.0-0.7); #Lymphocytes 1.9 thou/uL (1.20-3.40); #Monocytes 1.1 thou/uL (0.11-0.59); #Neutrophils 8.2 thou/uL (1.40-6.50); %Basophils 0.4 % (0.0-1.0); %Eosinophils 0.8 % (0.0-10.0); %Lymphocytes 16.4 % (21.0-51.0); %Monocytes 9.3 % (0.0-10.0); Hemoglobin 11.6 g/dL (12.0-16.0); Mean Corpuscular HGB CONC 31.7 g/dL (32.0-36.0); Mean Corpuscular Hemoglobin 28.5 pg (27.0-31.0); Mean Corpuscular Volume 89.8 fL (78.0-98.0); Mean Platelet Volume 8.9 fL (7.4-10.4); Platelet Count 240 thou/uL (130-400); RBC Distribution Width 12.4 % (11.5-14.5); Red Blood Cell (RBC) Count 4.06 mill/uL (4.20-5.40); White Blood Cell (WBC) Count 11.3 thou/uL (4.8-10.8)
[2018-12-23 08:47] LABS: ALT (SGPT) 26 U/L (8-55); AST (SGOT) 20 U/L (5-34); Albumin 3.2 g/dL (3.4-4.8); Alkaline Phosphatase 94 U/L (40-150); Anion Gap 11 mmol/L (10-20); BUN (Urea Nitrogen) 23 mg/dL (9.8-20.1); Bilirubin, Total 0.6 mg/dL (0.2-1.2); Calc. Creatinine Clearance 80 mL/min (70-130); Calcium 8.6 mg/dL (7.8-10.44); Carbon Dioxide 24 mmol/L (23-31); Chloride 104 mmol/L (98-107); Estimated GFR-MDRD 82; Globulin 2.7 g/dL (2.4-3.5); Glucose 86 mg/dL (80-115); Potassium 3.7 mmol/L (3.5-5.1); Protein, Total 5.9 g/dL (6.0-8.3); Sodium 135 mmol/L (136-145)
--- NOTE | 2018-12-23 11:59 | PDOC.HOSPP ---
- Objective Vital Signs & Weight: Vital Signs (12 hours) Temp Pulse Resp BP Pulse Ox 12/23/18 08:11 97.9 F 77 18 123/73 97 12/23/18 08:08 97 12/23/18 00:00 98.8 F 58 L 16 176/84 H 97 Weight Weight 140 lb I&O: 12/22/18 12/23/18 12/24/18 06:59 06:59 06:59 Intake Total 480 Balance 480 Result Diagrams: 12/23/18 07:20 12/23/18 07:20 Additional Labs: Pt seen for followup re:c. difficile colitis. Reports no more diarrhea. c/o dysuria and increased frequency of urination. No fevers or chills.labs and MARs reviewed by me. ROS - Review of Systems All systems: All other ROS were reviewed and found negative. Respiratory: denies: cough, dry, shortness of breath, hemoptysis, SOB with excertion, pleuritic pain, sputum, wheezing Cardiovascular: denies: chest pain, palpitations, orthopnea, paroxysmal noc. dyspnea, edema, light headedness Gastrointestinal: denies: nausea, vomitting, abdominal pain, diarrhea, constipation, melena, hematochezia Genitourinary: reports: dysuria, frequency - Medication Medications: Active Medications Generic Name Dose Route Start Last Admin Trade Name Freq PRN Reason Stop Dose Admin Acetaminophen 650 mg 12/21/18 19:15 12/23/18 05:04 Tylenol PO 650 mg Q4H PRN Administration Headache/Fever/Mild Pain (1-3) Famotidine 20 mg 12/21/18 21:00 12/22/18 20:58 Pepcid SLOW IVP 20 mg QPM MAY Administration Potassium Chloride/Sodium Chloride 1,000 mls @ 75 mls/hr 12/22/18 03:00 12/22 20:58 1/2 Ns W/Kcl 20 Meq IV 1,000 mls .[id number] MAY Administration Metronidazole 500 mg/ Device 100 mls @ 100 mls/hr 12/22/18 14:00 12/23/18 04: 59 IVPB 100 mls Q8HR MAY Administration Saccharomyces Boulardii 250 mg 12/23/18 09:00 12/23/18 08:08 Florastor PO 250 mg DAILY MAY Administration Tramadol HCl 50 mg 12/21/18 21:13 12/23/18 05:01 Ultram PO 50 mg Q8H PRN Administration Moderate Pain (4-6) Vancomycin HCl 250 mg 12/22/18 18:00 12/23/18 11:21 First Vancomycin PO 250 mg Q6HR MAY Administration - Exam NAD Eye: anicteric sclera ENT: no oropharyngeal lesions, moist mucosa Neck: supple Heart: RRR Respiratory: CTAB Gastrointestinal: soft Psychiatric: normal affect Hosp A/P (1) Clostridium difficile colitis Code(s): A04.72 - ENTEROCOLITIS D/T CLOSTRIDIUM DIFFICILE, NOT SPCF RECUR Status: Acute (2) Hyponatremia Code(s): E87.1 - HYPO-OSMOLALITY AND HYPONATREMIA Status: Acute (3) TEN (acute kidney injury) Code(s): N17.9 - ACUTE KIDNEY FAILURE, UNSPECIFIED Status: Resolved (4) Elevated blood pressure reading Code(s): R03.0 - ELEVATED BLOOD-PRESSURE READING, W/O DIAGNOSIS OF HTN Status : Resolved (5) Abnormal LFTs Code(s): R94.5 - ABNORMAL RESULTS OF LIVER FUNCTION STUDIES Status: Resolved - Plan continue antibiotics, out of bed/ambulate, DVT proph w/SCDs Sodium improved to 134. Check urine for evidence of infection. Continue IV Flagyl and enteral vancomycin. Leucocytosis improved.
[2018-12-23 12:07] LABS: Bacteria/HPF None Seen HPF (None Seen); Bilirubin Negative (Negative); Blood, Urine 1+ (Negative); Clarity Clear (Clear); Glucose, Urine (Dipstick) Normal (Negative); Leukocyte 250 Leu/uL (Negative); Nitrite Negative (Negative); Protein, Urine (Dipstick) Negative (Neg-Trace); Squamous Epithelial 0-3 HPF (0-3); Urobilinogen Normal mg/dL (Less than 2); WBC/HPF 21-50 HPF (0-3)
[2018-12-23 12:10] LABS: Urine Culture Reflex Yes Yes
[2018-12-23] MEDS: 1/2 NS w/KCL 20 mEq 1,000 ML IV SCH ×2 (12:38→17:29)
--- NOTE | 2018-12-23 13:26 | PRG ---
DATE OF SERVICE: 12/23/2018 SUBJECTIVE: Ms. Perez states her diarrhea is improved. She still has some left lower quadrant pain. She denies any nausea or vomiting. She is tolerating liquid diet. MEDICATIONS: She remains on Pepcid, Flagyl IV, vancomycin p.o., tramadol p.r.n., saccharomyces boulardii p.r.n. OBJECTIVE: VITAL SIGNS: Temperature is 97.9. She has been afebrile overnight. Pulse 58, blood pressure 186/78. GENERAL: She is thin. ABDOMEN: Soft. There is tenderness in left lower quadrant without rebound or guarding. EXTREMITIES: Reveal no edema. LABORATORY DATA: White count 11.3, down from 23,000 on , and 18,000 yesterday; hemoglobin 11.6; platelet count 240. Sodium 135, BUN and creatinine are 23 and 0.72. Urine cultures pending. She does have some white blood cells, no bacteria. ASSESSMENT: 1. Clostridium difficile colitis, severe, improving. 2. Dehydration, improving. 3. Sense of dysuria with some leukocytes in the urine, but no bacteria seen. Would not treat unless she has a positive culture. 4. Continue IV Flagyl, p.o. vancomycin. Tomorrow, we can stop the Flagyl. She continues to improve and continue the vancomycin. Continue probiotics. The patient is to get out of bed and ambulate, we talked to her about that. Job ID: [id number]
[2018-12-23] MEDS: hydrALAZINE 20 MG/ML VIAL SLOW IVP PRN (13:51)
[2018-12-23] MEDS ORDERED: Acetaminophen/Codeine 30-300mg Tablet PO PRN (15:12)
[2018-12-23] MEDS: Acetaminophen/Codeine 30-300mg Tablet PO PRN ×2 (15:31→21:02)
[2018-12-23] MEDS: Famotidine/PF 20 mg/2ml Vial SLOW IVP SCH (20:05)
[2018-12-24] MEDS: Acetaminophen/Codeine 30-300mg Tablet PO PRN ×3 (03:12→20:57)
[2018-12-24] MEDS: 1/2 NS w/KCL 20 mEq 1,000 ML IV SCH (03:12)
[2018-12-24 05:22] LABS: #Eosinphils 0.1 thou/uL (0.0-0.7); #Lymphocytes 1.7 thou/uL (1.20-3.40); #Monocytes 0.9 thou/uL (0.11-0.59); #Neutrophils 6.2 thou/uL (1.40-6.50); %Basophils 0.3 % (0.0-1.0); %Eosinophils 1.1 % (0.0-10.0); %Lymphocytes 18.8 % (21.0-51.0); %Monocytes 10.3 % (0.0-10.0); %Neutrophils 69.6 % (42.0-75.0); Hemoglobin 11.5 g/dL (12.0-16.0); Mean Corpuscular HGB CONC 32.8 g/dL (32.0-36.0); Mean Corpuscular Hemoglobin 29.7 pg (27.0-31.0); Mean Corpuscular Volume 90.4 fL (78.0-98.0); Mean Platelet Volume 8.1 fL (7.4-10.4); Platelet Count 244 thou/uL (130-400); RBC Distribution Width 12.4 % (11.5-14.5); Red Blood Cell (RBC) Count 3.88 mill/uL (4.20-5.40)
[2018-12-24] MEDS: Vancomycin HCl 25 MG/ML Oral PO SCH ×3 (05:42→18:15)
[2018-12-24] MEDS: metroNIDAZOLE 500 MG in Premix Bag 1 BAG IVPB SCH ×2 (05:43→13:02)
[2018-12-24 05:48] LABS: ALT (SGPT) 21 U/L (8-55); AST (SGOT) 22 U/L (5-34); Albumin 3.2 g/dL (3.4-4.8); Alkaline Phosphatase 103 U/L (40-150); Anion Gap 13 mmol/L (10-20); BUN (Urea Nitrogen) 14 mg/dL (9.8-20.1); Bilirubin, Total 0.4 mg/dL (0.2-1.2); Calc. Creatinine Clearance 90 mL/min (70-130); Calcium 8.8 mg/dL (7.8-10.44); Carbon Dioxide 22 mmol/L (23-31); Chloride 104 mmol/L (98-107); Estimated GFR-MDRD Greater than 90; Globulin 2.6 g/dL (2.4-3.5); Glucose 78 mg/dL (80-115); Potassium 3.7 mmol/L (3.5-5.1); Protein, Total 5.8 g/dL (6.0-8.3); Sodium 135 mmol/L (136-145)
[2018-12-24] MEDS: Saccharomyces boulardii 250 MG CAP PO SCH (07:33)
--- NOTE | 2018-12-24 07:43 | HP ---
CHIEF COMPLAINT: Nausea, vomiting, and abdominal pain. HISTORY OF PRESENT ILLNESS: Ms. Perez is a 63-year-old woman, who presents with nausea, vomiting, and abdominal pain. She states she has had no bowel movement for a week and does not normally suffer from constipation. She took a Dulcolax last night which was followed by nausea, vomiting, and abdominal pain since then. She has had diarrhea with no control over her very loose stools. Reports vomiting clear acid-like liquid with no blood noted. The last thing she had obtained was a little bit of soup last night before her symptoms started. She has generalized abdominal discomfort, but it is worse in the left lower quadrant. The patient states she was evaluated at [place] one week ago due to her abdominal discomfort. The patient states she is feeling unwell overall and suffers from chronic back pain, which is being made worse by the symptoms. The patient denies any history of abdominal surgeries. She had a colonoscopy at a young age due to suspected Crohn's, but states it was unremarkable. She has had no further endoscopic procedures since then. This was greater than 20 years ago. The patient denies noting any changes with her stools recently such as thin stools, melena, or bright blood in her stools. She states she has been passing some flatus. In the emergency department, she was noted to have a normal temperature with blood pressure of 181/87 and pain 10/10, with normal heart rate. She was treated initially with Reglan and Protonix. She underwent CT of the abdomen, which demonstrated a large amount of stool in the colon with mural thickening and inflammatory changes surrounding the transverse colon and left colon. There was free fluid surrounding the sigmoid colon in the pelvis. Luminal narrowing was noted at the rectosigmoid junction of uncertain significance. Findings felt to be consistent with diffuse colitis. GI consultation was recommended. She underwent laboratory studies which were notable for white count of 23.6, sodium of 133, potassium of 3.8, chloride of 97, carbon dioxide of 16, anion gap of 24, BUN of 40, GFR of 23, glucose of 231, calcium of 10.6, total bilirubin of 1.3, AST of 93, ALT of 78, alkaline phosphatase of 190, and serum protein of 8.6. Lipase was normal at 9. The patient was started on IV antibiotics with meropenem in the ER and then given Bentyl, as well as Phenergan. PAST MEDICAL HISTORY: 1. History of skin cancer. 2. History of chronic back pain. 3. Neuropathy. PAST SURGICAL HISTORY: 1. Right knee surgery. 2. Cholecystectomy. 3. Neck surgery. SOCIAL HISTORY: Reports occasional alcohol use. Denies any tobacco use or illicit drug use. ALLERGIES: MORPHINE. CURRENT MEDICATIONS: 1. Protonix. 2. Naproxen. 3. [place]. 4. Tramadol. PHYSICAL EXAMINATION: GENERAL: The patient appears generally well. She is well developed, in no severe distress. The patient lying on a stretcher. VITAL SIGNS: Temperature 98.1, pulse 91, respirations 18, blood pressure 181/87 , O2 saturation 99% on room air. HEENT: Normocephalic and atraumatic. Pupils are equal, round, and reactive to light. Sclerae without icterus. Oropharynx is clear. NECK: Supple. LUNGS: Clear to auscultation bilaterally without any wheezes, rales, or rhonchi. CARDIAC: Regular rate and rhythm. ABDOMEN: Soft. No bowel sounds. No guarding or rigidity. Nondistended. Diffuse discomfort to palpation, more prominent in left lower quadrant. Again, the patient was not guarding during exam. Negative Osorio sign. EXTREMITIES: No lower leg swelling or edema. NEUROLOGIC: Alert and oriented x3. Cranial nerves 2 through 12 intact. SKIN: Warm and dry. No rash or jaundice. IMPRESSION AND PLAN: Ms. Perez is a pleasant 63-year-old woman, who is being admitted for management of the following. 1. Colitis. The patient appears to be septic with white count of 23.6, anion gap of 24. She is normotensive and afebrile. Lactic acid has not been done and I will add that on to her labs. LFTs slightly elevated and total bilirubin is 1.3. We will add on an indirect bilirubin. The patient is on several medications for her back pain. We will add urine drug screen, as well as serum toxicology screen. For the moment, nausea and vomiting have settled. We will continue to manage with IV antiemetics and keep the patient n.p.o. Consultation placed to GI. She will likely need colonoscopy given the luminal narrowing noted on the CT. We will add on magnesium to her labs. Continue IV antibiotics. 2. Deep venous thrombosis prophylaxis. Mechanical SCDs. The patient is ambulatory. 3. Hyperbilirubinemia. As mentioned, bilirubin is elevated at 1.3 and LFTs are elevated as well. We will request an abdominal ultrasound. The patient does have a history of previous cholecystectomy. 4. Code status is full. Her surrogate decision maker could not be appointed at this time. Her , Vinny Perez, is unreachable due to being on a rig in [place]. The patient's case to be discussed with the attending for further recommendations. Job ID: [id number] [facility]
[2018-12-24] MEDS ORDERED: Amlodipine 5 MG TAB PO SCH (11:00)
--- NOTE | 2018-12-24 13:09 | PQF ---
DATE: 12-24-18 ATTN: DR. MOUSTAPHA ZUNIGA Please exercise your independent, professional judgment in responding to the clarification form. Clinical indicators are provided on the bottom of this form for your review Please check appropriate box(s) to clarify if the following diagnosis has been ruled in or ruled out: SEPSIS [ ] Ruled in diagnosis [ ] Continue to treat [ ] Resolved [ ] Ruled out diagnosis [ ] Other diagnosis [ ] Unable to determine In addition, please specify: Present on Admission (POA): [ ] Yes [ ] No [ ] Unable to determine For continuity of documentation, please document condition throughout progress notes and discharge summary. Thank You. CLINICAL INDICATORS - SIGNS / SYMPTOMS / LABS H&P: COLITIS. THE PATIENT APPEARS TO BE SEPTIC WITH WBC OF 23.6, ANION GAP OF 24. PN DR. [id number]: CLOSTRIDIUM DIFFICILE COLITIS, HYPONATREMIA, TEN WBC: 12-21-18: 23.6 12-22-18: 18.8 12-23-18: 11.3 12-24-18: 9.0 BANDS: 12-21-18: 12 LACTIC ACID: 12-21-18: 3.5 PULSE: 12-21-18: 102 RISK FACTORS: ER DX: COLITIS, DEHYDRATION, NAUSEA, VOMITING LABS: URINE: 12-23-18: UR LEUKOCYTE: 250, URINE WBC: 21-50 TREATMENTS MAR: 12-22-18: FLAGYL IV, VANCOMYCIN IV, IVF ER: MEROPENEM IV, IVF (This form is maintained as a part of the permanent medical record) 2014 [employer], [address]. All Rights Reserved RETA [email or web address] Office: [phone] [facility]
--- NOTE | 2018-12-24 13:21 | PRG ---
DATE OF SERVICE: 12/24/2018 SUBJECTIVE: Ms. Perez is feeling well. She is having no further diarrhea. She has cramps occasionally. She has been started on a soft diet today. OBJECTIVE: VITAL SIGNS: Temperature is 98, pulse 66, blood pressure 179/75. ABDOMEN: Soft and nontender. LABORATORY DATA: White count is 9, hemoglobin 11.5, and platelet count 244. Sodium 135, potassium is 3.7, and BUN and creatinine 14 and 0.64. Albumin 3.2. Liver function tests are normal. ASSESSMENT: Clostridium difficile colitis. RECOMMENDATIONS: Hep-Lock IV. Stop IV Flagyl. Continue p.o. vancomycin for 14 days. If she tolerates regular diet today and has no relapse symptoms with stopping her IV Flagyl, she can go home tomorrow morning and see me in the office in 2 weeks. She will need to stay on a probiotic for 2 months. The issues surrounding C diff including recurrence, prevention of recurrence, household cleaning, and her risks to contacts were discussed with the patient in detail. Job ID: [id number]
--- NOTE | 2018-12-24 15:30 | PDOC.HOSPP ---
- Subjective Subjective: Pt seen for followup re: clostridium difficile colitis. Feels better. - Objective Vital Signs & Weight: Vital Signs (12 hours) Temp Pulse Resp BP BP Pulse Ox 12/24/18 11:03 98.5 F 60 16 179/75 H 179/75 H 96 12/24/18 07:48 97.9 F 65 16 151/80 H 97 Weight Weight 140 lb I&O: 12/23/18 12/24/18 12/25/18 06:59 06:59 06:59 Intake Total 480 3832 Balance 480 3832 Result Diagrams: 12/24/18 05:09 12/24/18 05:09 Additional Labs: Labs and MARs reviewed by me ROS - Review of Systems All systems: All other ROS were reviewed and found negative. Respiratory: denies: cough, dry, shortness of breath, hemoptysis, SOB with excertion, pleuritic pain, sputum, wheezing Cardiovascular: denies: chest pain, palpitations, orthopnea, paroxysmal noc. dyspnea, edema, light headedness Gastrointestinal: denies: nausea, vomitting, abdominal pain, diarrhea, constipation, melena, hematochezia - Medication Medications: Active Medications Generic Name Dose Route Start Last Admin Trade Name Freq PRN Reason Stop Dose Admin Acetaminophen 650 mg 12/21/18 19:15 12/23/18 05:04 Tylenol PO 650 mg Q4H PRN Administration Headache/Fever Acetaminophen/Codeine Phosphate 2 tab 12/23/18 15:12 12/24/18 14:33 Tylenol #3 PO 2 tab Q6H PRN Administration Pain 5-10 Famotidine 20 mg 12/21/18 21:00 12/23/18 20:05 Pepcid SLOW IVP 20 mg QPM MAY Administration Hydralazine HCl 10 mg 12/22/18 09:56 12/23/18 13:51 Apresoline SLOW IVP 10 mg Q6H PRN Administration SBP Greater Than 170 Saccharomyces Boulardii 250 mg 12/23/18 09:00 12/24/18 07:33 Florastor PO 250 mg DAILY MAY Administration Vancomycin HCl 250 mg 12/22/18 18:00 12/24/18 11:04 First Vancomycin PO 250 mg Q6HR MAY Administration - Exam NAD Eye: anicteric sclera ENT: normocephalic atraumatic Neck: supple Heart: RRR Respiratory: CTAB Gastrointestinal: soft Extremities: no cyanosis Neurological: CN's grossly intact Psychiatric: normal affect Hosp A/P (1) Clostridium difficile colitis Code(s): A04.72 - ENTEROCOLITIS D/T CLOSTRIDIUM DIFFICILE, NOT SPCF RECUR Status: Acute (2) Hyponatremia Code(s): E87.1 - HYPO-OSMOLALITY AND HYPONATREMIA Status: Acute (3) TEN (acute kidney injury) Code(s): N17.9 - ACUTE KIDNEY FAILURE, UNSPECIFIED Status: Resolved (4) Elevated blood pressure reading Code(s): R03.0 - ELEVATED BLOOD-PRESSURE READING, W/O DIAGNOSIS OF HTN Status : Resolved (5) Abnormal LFTs Code(s): R94.5 - ABNORMAL RESULTS OF LIVER FUNCTION STUDIES Status: Resolved (6) Sepsis Code(s): A41.9 - SEPSIS, UNSPECIFIED ORGANISM Status: Resolved - Plan continue enteral vancomycin. Advance diet. Blood pressure is high, start amlodipine. Mild hyponatremia. Sepsis present on admission, resolved. Likely home tomorrow.
[2018-12-24] MEDS: Famotidine/PF 20 mg/2ml Vial SLOW IVP SCH (20:58)
[2018-12-25] MEDS: Vancomycin HCl 25 MG/ML Oral PO SCH ×3 (00:09→14:01)
[2018-12-25] MEDS: hydrALAZINE 20 MG/ML VIAL SLOW IVP PRN (00:17)
[2018-12-25] MEDS: Acetaminophen/Codeine 30-300mg Tablet PO PRN ×2 (03:16→14:04)
[2018-12-25 05:31] LABS: #Eosinphils 0.1 thou/uL (0.0-0.7); #Lymphocytes 1.5 thou/uL (1.20-3.40); #Monocytes 0.7 thou/uL (0.11-0.59); #Neutrophils 5.3 thou/uL (1.40-6.50); %Basophils 0.4 % (0.0-1.0); %Eosinophils 1.1 % (0.0-10.0); %Lymphocytes 20.2 % (21.0-51.0); %Neutrophils 69.4 % (42.0-75.0); Hemoglobin 13.3 g/dL (12.0-16.0); Mean Corpuscular Hemoglobin 29.9 pg (27.0-31.0); Mean Corpuscular Volume 90.5 fL (78.0-98.0); Mean Platelet Volume 7.9 fL (7.4-10.4); Platelet Count 316 thou/uL (130-400); RBC Distribution Width 12.6 % (11.5-14.5); Red Blood Cell (RBC) Count 4.47 mill/uL (4.20-5.40); White Blood Cell (WBC) Count 7.6 thou/uL (4.8-10.8)
[2018-12-25 05:48] LABS: ALT (SGPT) 37 U/L (8-55); AST (SGOT) 56 U/L (5-34); Albumin 3.7 g/dL (3.4-4.8); Alkaline Phosphatase 231 U/L (40-150); Anion Gap 14 mmol/L (10-20); BUN (Urea Nitrogen) 9 mg/dL (9.8-20.1); Bilirubin, Total 0.5 mg/dL (0.2-1.2); Calc. Creatinine Clearance 78 mL/min (70-130); Calcium 9.7 mg/dL (7.8-10.44); Carbon Dioxide 28 mmol/L (23-31); Chloride 101 mmol/L (98-107); Estimated GFR-MDRD 79; Globulin 3.1 g/dL (2.4-3.5); Glucose 99 mg/dL (80-115); Potassium 4.5 mmol/L (3.5-5.1); Protein, Total 6.8 g/dL (6.0-8.3); Sodium 138 mmol/L (136-145)
[2018-12-25 07:19] VITALS: BP 166/72; TEMP 97.8
[2018-12-25] MEDS: Saccharomyces boulardii 250 MG CAP PO SCH (08:31)
[2018-12-25] MEDS ORDERED: Amlodipine 5 MG TAB PO SCH (09:00)
--- NOTE | 2018-12-25 16:05 | DIS ---
DATE OF ADMISSION: 12/21/2018 DATE OF DISCHARGE: 12/25/2018 PRIMARY CARE PROVIDER: Blake Pinedo DO. DISCHARGE DIAGNOSES: 1. Clostridium difficile colitis. 2. Sepsis. 3. Hyponatremia. 4. Acute kidney injury. 5. Hypokalemia. CONDITION OF PATIENT ON THE DAY OF DISCHARGE: Stable. I assessed Ms. Perez on the day of discharge. She denies any chest pain or shortness of breath. Vital signs are stable. S1 and S2 are heard, regular. Lungs are clear to auscultation bilaterally. CONSULTATIONS DURING THIS HOSPITALIZATION: Gastroenterology, Dr. Amnada. DISCHARGE MEDICATIONS: 1. [place] p.r.n. 2. Excedrin Extra Strength caplet as directed. 3. Nat-D 12 Hour tablet as directed. 4. Multivitamins 1 tablet daily. 5. Naproxen 500 mg daily. 6. Omeprazole 40 mg daily. 7. Tramadol 50 mg every 8 hours as needed. 8. Vancomycin 250 mg every 6 hours for 10 more days. 9. Florastor 250 mg daily for 2 months. HOSPITAL COURSE: Ms. Perez is a pleasant 63-year-old lady, who was admitted to [facility] on December 21, 2018, for nausea, vomiting, and abdominal pain. Please refer to Ms. Marquez's history and physical note for further details. Stool Clostridium difficile test was positive for antigen and toxigenic Clostridium difficile. She was treated with intravenous Flagyl and oral vancomycin with improvement in her symptoms. She was seen by Gastroenterology Service. She is being discharged home in a stable condition. Urinalysis was suggestive of urinary tract infection, but preliminary urine culture did not show any growth. She has not been started on antibiotics, and she did not have any urinary symptoms at the time of discharge. On the day of discharge, she has sodium 138, potassium 4.5, creatinine 0.74, AST 56, alkaline phosphatase 231, and ALT 37. She has an unremarkable CBC. She had abdominal ultrasound during this hospitalization because of abnormal LFTs. There was no evidence of biliary obstruction. She had bilateral renal cysts and nonobstructing right renal calculus. FOLLOWUP: She was advised to follow up with Gastroenterology Service in 2 to 3 weeks. Many thanks for allowing me to participate in your patient's care. Please feel free to contact me with any questions or concerns. DISCHARGE DESTINATION: Home. TIME SPENT: Total amount of time spent coordinating this discharge: 32 minutes. Job ID: [id number]
== END 2018-12-25 18:35 | disposition home or self-care (01) | DRG 872 ==
LOC: ERS 12:21 → T4-A 19:19
PROVIDERS: ADMIT Family Medicine; ATTEND Family Medicine
DX: A41.9 Sepsis, unspecified organism (principal); A04.72 Enterocolitis due to Clostridium difficile, not specified as recurrent; E87.1 Hypo-osmolality and hyponatremia; N17.9 Acute kidney failure, unspecified; R82.998 Other abnormal findings in urine; M54.9 Dorsalgia, unspecified; E80.6 Other disorders of bilirubin metabolism; G62.9 Polyneuropathy, unspecified; G89.4 Chronic pain syndrome; E86.0 Dehydration; R94.5 Abnormal results of liver function studies; R03.0 Elevated blood-pressure reading, without diagnosis of hypertension; E87.6 Hypokalemia; Z90.49 Acquired absence of other specified parts of digestive tract; Z85.828 Personal history of other malignant neoplasm of skin; Z79.899 Other long term (current) drug therapy; Z88.5 Allergy status to narcotic agent
CPT/HCPCS: 36415; 74176; 76700; 80048; 80053; 80306; 80307; 81001; 82248; 82550; 83605; 83690; 83735; 85025; 87045; 87046; 87086; 87324; 87449; 87493; 87899; 96365; 96367; 96372; 96375; C9113; J0360; J0500; J2185; J2550; J2765; J3480; J3490; S0028

== ENCOUNTER 2019-01-04 11:59 | Outpatient (CLI) | payer OTHER ==
--- NOTE | 2019-01-04 12:49 | MMO ---
Bilateral MAMMO Bilat Screen DDI+ALYSSA. CLINICAL HISTORY: Patient is 63 years old and is seen for screening. The patient has the following family history of breast cancer: mother, at age 40. The patient has a history of Skin cancer. VIEWS: The views performed were: bilateral craniocaudal with tomosynthesis and bilateral mediolateral oblique with tomosynthesis. FILMS COMPARED: The present examination has been compared to a prior imaging study performed at [facility] on 11/22/2017. MAMMOGRAM FINDINGS: There are scattered fibroglandular densities. There is a single benign appearing calcification seen in the right breast. There are no suspicious masses, suspicious calcifications, or new areas of architectural distortion. IMPRESSION: THERE IS NO MAMMOGRAPHIC EVIDENCE OF MALIGNANCY. A ROUTINE FOLLOW-UP MAMMOGRAM IN 1 YEAR IS RECOMMENDED. THE RESULTS OF THIS EXAM WERE SENT TO THE PATIENT. ACR BI-RADS Category 2 - Benign finding MAMMOGRAPHY NOTE: 1. A negative mammogram report should not delay a biopsy if a dominant of clinically suspicious mass is present. 2. Approximately 10% to 15% of breast cancers are not detected by mammography. 3. Adenosis and dense breasts may obscure an underlying neoplasm. Reported by: ROSA BATRES MD Electonically Signed: [id number]
== END 2019-01-04 12:00 | disposition home or self-care (01) ==
LOC: BICMAMMO 11:59
PROVIDERS: ATTEND Family Medicine
DX: Z12.31 Encounter for screening mammogram for malignant neoplasm of breast (principal); Z85.828 Personal history of other malignant neoplasm of skin; Z80.3 Family history of malignant neoplasm of breast
CPT/HCPCS: 77063; 77067

== ENCOUNTER 2020-01-22 08:53 | Outpatient (CLI) | payer OTHER ==
--- NOTE | 2020-01-22 09:33 | MMO ---
Right Breast MAMMO Unilat Diag DDI RT+ALYSSA. CLINICAL HISTORY: Patient is 64 years old and is seen for additional evaluation requested at current screening. The patient has the following family history of breast cancer: mother, at age 40. The patient has a history of Skin cancer. VIEWS: The views performed were: right craniocaudal spot compression magnification; right mediolateral spot compression magnification; and right mediolateral with tomosynthesis. FILMS COMPARED: The present examination has been compared to prior imaging studies performed at [facility] on 11/22/2017, 01/04/2019 and 01/21/2020, and at [facility] [place] on 12/13/2011. This study has been interpreted with the assistance of computer-aided detection. MAMMOGRAM FINDINGS: There are scattered fibroglandular densities. There are punctate calcifications with grouped or clustered distribution seen in the posterior region of the right breast at 9 o'clock. IMPRESSION: CALCIFICATIONS IN THE RIGHT BREAST ARE PROBABLY BENIGN. FOLLOW-UP IN 6 MONTHS IS RECOMMENDED. PT REQUESTED 6 MONTH FOLLOW UP THE RESULTS OF THIS EXAM WERE SENT TO THE PATIENT. ACR BI-RADS Category 3 - Probably benign finding - short interval follow-up suggested. [facility] will notify the patient of the need for additional imaging services. MAMMOGRAPHY NOTE: 1. A negative mammogram report should not delay a biopsy if a dominant of clinically suspicious mass is present. 2. Approximately 10% to 15% of breast cancers are not detected by mammography. 3. Adenosis and dense breasts may obscure an underlying neoplasm. Reported by: AUGUSTA BERNARD MD Electonically Signed: [id number]
== END 2020-01-22 08:54 | disposition home or self-care (01) ==
LOC: BICMAMMO 08:53
PROVIDERS: ATTEND Family Medicine
DX: R92.1 Mammographic calcification found on diagnostic imaging of breast (principal)
CPT/HCPCS: G0279